=== PATIENT | female | born 1955 | race Two or more races ===

== ENCOUNTER 2023-05-15 06:11 | Day surgery (SDC) | payer MEDICARE ==
[2023-05-14 10:51] VITALS: BMI 22.4
[2023-05-15] MEDS ORDERED: CEFAZOLIN 2 GM VIAL ONE ×2 (06:31→10:08)
[2023-05-15] MEDS ORDERED: Sodium Chloride 0.9% 100 ML ONE ×2 (06:31→10:09)
[2023-05-15] MEDS ORDERED: Bupivacaine PF 0.5% 30 ML VIAL ONE (06:34)
[2023-05-15] MEDS ORDERED: EPINEPHrine 1 MG/ML AMP ONE (06:34)
[2023-05-15] MEDS ORDERED: Thrombin 5000 UNITS/5 ML VIAL ONE (06:34)
[2023-05-15] MEDS ORDERED: Acetaminophen 500 MG TAB ONE (06:39)
[2023-05-15] MEDS ORDERED: fentaNYL 50 mcg/mL 1 mL Vial ONE ×4 (06:41→08:54)
[2023-05-15] MEDS ORDERED: SUGAMMADEX SODIUM 200 MG/2 ML VIAL ONE (06:41)
[2023-05-15] MEDS ORDERED: Famotidine/PF 20 mg/2ml Vial ONE (06:41)
[2023-05-15] MEDS ORDERED: Midazolam HCl 2 mg/2 ml Vial ONE (06:50)
[2023-05-15] MEDS ORDERED: ePHEDrine Sulfate 50 MG/10 ML VIAL ONE (06:59)
[2023-05-15] MEDS ORDERED: PROPOFOL 200 MG/20 ML VIAL ONE (06:59)
[2023-05-15] MEDS ORDERED: Rocuronium Bromide 10 MG/ML (10ML VIAL) ONE (06:59)
[2023-05-15] MEDS ORDERED: Ketorolac Tromethamine 30 MG/ML VIAL ONE (06:59)
[2023-05-15] MEDS ORDERED: Dexamethasone 20 MG/5 ML VIAL ONE (06:59)
[2023-05-15] MEDS ORDERED: Lidocaine 1% PF 5 ML VIAL ONE (06:59)
[2023-05-15] MEDS ORDERED: Ondansetron PF 4 MG/2 ML Vial ONE (06:59)
[2023-05-15] MEDS ORDERED: Metoclopramide HCl 10 MG/2 ML VIAL ONE (06:59)
[2023-05-15] MEDS ORDERED: PHENYLEPHRINE-NS 100 MCG/ML 10 ML SYRINGE ONE (06:59)
[2023-05-15 07:19] LABS: Anion Gap 15 mmol/L (10-20); BUN (Urea Nitrogen) 14 mg/dL (9.8-20.1); Calc. Creatinine Clearance 69 mL/min (70-130); Calcium 9.5 mg/dL (7.8-10.44); Carbon Dioxide 24 mmol/L (23-31); Chloride 104 mmol/L (98-107); Estimated GFR 93; Glucose 89 mg/dL (80-115); Potassium 4.6 mmol/L (3.5-5.1); Sodium 138 mmol/L (136-145)
[2023-05-15] MEDS ORDERED: Acetaminophen/Codeine 30-300mg Tablet ONE (10:08)
== END 2023-05-15 11:33 | disposition home or self-care (01) ==
LOC: SDC 06:11
PROVIDERS: ATTEND Neurological Surgery
PROC: 01NB0ZZ Release Lumbar Nerve, Open Approach (ICD-10-PCS; principal; 2023-05-15)
DX: M48.062 Spinal stenosis, lumbar region with neurogenic claudication (principal); Z90.710 Acquired absence of both cervix and uterus
CPT/HCPCS: 63047; 63048; 80048; J3010; J0171; J1100; J1885; J2250; J2405; J2704; J2765; J3490; S0020; S0028

== ENCOUNTER 2023-05-19 13:46 | Emergency (ER) | payer MEDICARE | END 2023-05-19 15:08 | disposition home or self-care (01) | LOC: ERS 13:46 | DX: R20.2 Paresthesia of skin (principal) | CPT/HCPCS: 99283 ==